=== PATIENT | male | born 1995 | race Caucasian/White ===

== ENCOUNTER → 2020-01-05 | Outpatient (CLI) | payer OTHER | LOC: ZCOL.LAB 15:46 | DX: Z20.828 Contact with and (suspected) exposure to other viral communicable diseases (principal) ==

== ENCOUNTER → 2020-03-09 | Outpatient (CLI) | payer OTHER | LOC: ZCOL.LAB 19:18 | DX: Z20.828 Contact with and (suspected) exposure to other viral communicable diseases (principal) ==